=== PATIENT | male | born 1990 | race Caucasian/White ===

== ENCOUNTER 2022-05-22 09:09 | Emergency (ER) | payer MEDICAID | END 2022-05-22 10:33 | disposition home or self-care (01) | LOC: JP.ED 09:09 | DX: J02.9 Acute pharyngitis, unspecified (principal); F17.210 Nicotine dependence, cigarettes, uncomplicated; Z88.0 Allergy status to penicillin | CPT/HCPCS: 36415; 85025; 86308; 99283 ==